=== PATIENT | male | born 1990 | race Two or more races ===

== ENCOUNTER 2025-05-03 12:23 | Emergency (ER) | payer OTHER ==
[~2025-05-03] VITALS: Ht 182.9 cm; Wt 65.0 kg
[2025-05-03 12:27] VITALS: TEMP 97.7
[2025-05-03 13:55] LABS: PLATELET COUNT (AUTO) 221 K/uL (150-450); RED BLOOD CELL COUNT(AUTO) 4.44 MIL/uL (4.50-5.90); RED CELL DISTRIBUTION WIDTH 13.8 % (11.5-14.5); WHITE BLOOD COUNT (AUTO) 6.3 K/uL (4.5-11.0)
[2025-05-03 14:06] LABS: CALCIUM, TOTAL 8.3 mg/dL (8.8-10.5); CREATININE 1.09 mg/dL (0.60-1.30); GLOMERULAR FILTR. RATE CALC > 60 mL/min (>60); GLUCOSE,RANDOM 86 mg/dL (70-110); SODIUM SERUM 141 mmol/L (136-145); UREA NITROGEN, BLOOD 15 mg/dL (7-18)
[2025-05-03 16:15] VITALS: BP 104/76; PULSE 50; RESP 15; O2SAT 99
== END 2025-05-03 16:43 ==
LOC: EMS 12:23
DX: K59.00 Constipation, unspecified (principal)
CPT/HCPCS: 74176; 80048; 85025; 99285